=== PATIENT | female | born 1995 | race Caucasian/White ===

== ENCOUNTER 2018-07-14 21:53 | Emergency (ER) | payer MEDICAID ==
[~2018-07-14] VITALS: Ht 165.1 cm; Wt 127.3 kg
[2018-07-15 00:06] VITALS: BP 129/80; PULSE 95; TEMP 98.2
[2018-07-15] MEDS ORDERED: ZITHROMAX Z PA250 MG PO (00:13)
[2018-07-15] MEDS ORDERED: TESSALON P100 MG/CAP PO (00:17)
== END 2018-07-15 00:22 | disposition home or self-care (01) ==
LOC: COL.ER 21:53
DX: J06.9 Acute upper respiratory infection, unspecified (principal)

== ENCOUNTER 2018-07-16 15:19 | Emergency (ER) | payer MEDICAID ==
[~2018-07-16] VITALS: Ht 165.1 cm; Wt 127.3 kg
[~2018-07-16 15:19] MED LIST: TESSALON P100 MG/CAP PO; ZITHROMAX Z PA250 MG PO
[2018-07-16 15:45] VITALS: BP 137/75
[2018-07-16 17:36] LABS: BASO % 0.3 % (0.0-2.0); EOS # 0.1 (0.0-0.7); EOS % 0.7 % (0-4.0); GRAN # 5.6 (1.4-6.5); HEMATOCRIT 42.2 % (37.0-47.0); HEMOGLOBIN 13.9 g/dl (12.5-16.0); LYMPH # 0.9 (1.2-3.4); LYMPH % 12.4 % (20.0-51.0); MEAN CELL VOLUME 92 fl (80.0-100.0); MEAN CORPUSCULAR HEMOGLOBIN 30 pg (27.0-31.0); MEAN CORPUSCULAR HGB CONC 33 g/dl (33.0-37.0); MEAN PLATELET VOLUME 10.7 fl (7.4-10.4); MONO # 0.8 (0.1-0.6); MONO % 10.7 % (1.7-9.3); PLATELET COUNT 184 K/mm3 (130-400); REDCELL DISTRIBUTION WIDTH-CV 13.6 % (11.5-14.5)
[2018-07-16 17:50] LABS: ALBUMIN 4.1 gm/dL (3.5-5.0); BILIRUBIN,TOTAL 0.7 mg/dL (0.0-1.0); C-REACTIVE PROTEIN 3.2 mg/dL (0.0-0.9); CALCIUM 9.1 mg/dL (8.4-10.2); CREATININE, serum 0.73 mg/dL (0.52-1.25); POTASSIUM 3.8 mmol/L (3.4-5.0); TOTAL PROTEIN 7.6 gm/dL (6.4-8.2)
[2018-07-16 20:27] VITALS: TEMP 98.7
[2018-07-16 20:45] VITALS: PULSE 100
== END 2018-07-16 20:47 | disposition home or self-care (01) ==
LOC: COL.ER 15:19
PROVIDERS: Nurse Practitioner
DX: J10.1 Influenza due to other identified influenza virus with other respiratory manifestations (principal); E11.9 Type 2 diabetes mellitus without complications; F17.210 Nicotine dependence, cigarettes, uncomplicated; Z79.84 Long term (current) use of oral hypoglycemic drugs
CPT/HCPCS: J2405; J7030

== ENCOUNTER 2018-12-09 18:23 | Emergency (ER) | payer MEDICAID ==
[~2018-12-09] VITALS: Ht 165.1 cm; Wt 127.3 kg
[2018-12-09 18:40] VITALS: TEMP 98.6
[2018-12-09] MEDS ORDERED: DOXYCYCLINE 10100 MG PO (19:10)
[2018-12-09] MEDS ORDERED: CEPHALEXIN500 M1 PO (19:10)
[2018-12-09 19:30] VITALS: BP 131/81; PULSE 97
== END 2018-12-09 19:36 | disposition home or self-care (01) ==
LOC: COL.ER 18:23
DX: L02.211 Cutaneous abscess of abdominal wall (principal); F17.210 Nicotine dependence, cigarettes, uncomplicated

== ENCOUNTER 2019-08-11 23:28 | Emergency (ER) | payer SELFPAY ==
[~2019-08-11] VITALS: Ht 165.1 cm; Wt 127.3 kg
[~2019-08-11 23:28] MED LIST changes: +CEPHALEXIN500 M1 PO; +CLEOCIN HCL300 MG PO; +DOXYCYCLINE 10100 MG PO
[2019-08-11 23:49] VITALS: BP 135/72
[2019-08-12 01:24] VITALS: PULSE 94; TEMP 97.9
== END 2019-08-12 01:24 | disposition home or self-care (01) ==
LOC: COL.ER 23:28
DX: J06.9 Acute upper respiratory infection, unspecified (principal)

== ENCOUNTER 2020-03-16 23:05 | Emergency (ER) | payer MEDICAID ==
[~2020-03-16] VITALS: Ht 165.1 cm; Wt 131.8 kg
[2020-03-16 23:12] VITALS: BP 117/79; TEMP 96.8
[2020-03-16] MEDS ORDERED: GLUCOPHAGE500 MG/TAB PO (23:29)
[2020-03-17] MEDS ORDERED: FLAGYL500 MG PO (00:33)
[2020-03-17 00:40] VITALS: PULSE 88
== END 2020-03-17 00:40 | disposition home or self-care (01) ==
LOC: COL.ER 23:05
DX: N76.0 Acute vaginitis (principal); E11.9 Type 2 diabetes mellitus without complications; Z79.84 Long term (current) use of oral hypoglycemic drugs

== ENCOUNTER 2022-05-12 23:36 | Emergency (ER) | payer MEDICAID ==
[~2022-05-12] VITALS: Ht 162.6 cm; Wt 130.0 kg
[~2022-05-12 23:36] MED LIST changes: +FLAGYL500 MG PO; +GLUCOPHAGE500 MG/TAB PO
[2022-05-12 23:53] VITALS: BP 204/100; PULSE 81; TEMP 98
[2022-05-13] MEDS ORDERED: CEFTIN 250250 MG/TAB PO (00:09)
== END 2022-05-13 00:15 | disposition home or self-care (01) ==
LOC: COL.ER 23:36
DX: O99.511 Diseases of the respiratory system complicating pregnancy, first trimester (principal); J32.0 Chronic maxillary sinusitis; Z3A.10 10 weeks gestation of pregnancy

== ENCOUNTER 2022-05-17 19:14 | Emergency (ER) | payer MEDICAID ==
[~2022-05-17] VITALS: Ht 165.1 cm; Wt 129.5 kg
[~2022-05-17 19:14] MED LIST changes: +CEFTIN 250250 MG/TAB PO
[2022-05-17 19:21] VITALS: TEMP 97.2
[2022-05-17 20:47] VITALS: BP 140/81; PULSE 96
== END 2022-05-17 20:47 | disposition home or self-care (01) ==
LOC: COL.ER 19:14
DX: O99.891 Other specified diseases and conditions complicating pregnancy (principal); R04.0 Epistaxis; Z3A.11 11 weeks gestation of pregnancy